=== PATIENT | female | born 1985 | race African-American/Black ===

== ENCOUNTER 2016-12-09 19:54 | Emergency (ER) | payer MEDICAID | END 2016-12-10 00:10 | disposition home or self-care (01) | LOC: D.ER 19:54 | DX: T65.891A Toxic effect of other specified substances, accidental (unintentional), initial encounter (principal) ==

== ENCOUNTER 2018-10-24 22:48 | Emergency (ER) | payer MEDICAID ==
[~2018-10-24] VITALS: Ht 162.6 cm; Wt 127.3 kg
[2018-10-24 22:54] VITALS: Ht 162.6 cm; Wt 127.3 kg
[2018-10-24] MEDS ORDERED: NORVASC10 MG PO (22:55)
[2018-10-24] MEDS ORDERED: NEURONTIN 300300 MG (22:55)
[2018-10-24] MEDS ORDERED: KLONOPIN1 MG PO (22:55)
[2018-10-24] MEDS ORDERED: ZITHROMAX500 MG PO (23:09)
[2018-10-24] MEDS ORDERED: MUCINEX600 MG PO (23:09)
[2018-10-25 00:30] VITALS: BP 148/85
== END 2018-10-25 00:30 | disposition home or self-care (01) ==
LOC: D.ER 22:48
DX: J20.9 Acute bronchitis, unspecified (principal); I10 Essential (primary) hypertension